=== PATIENT | male | born 1965 | race Two or more races ===

== ENCOUNTER 2022-04-10 06:49 | Outpatient (CLI) | payer OTHER | END 2022-04-10 06:57 | disposition home or self-care (01) | LOC: LAB 06:49 | PROVIDERS: ATTEND Internal Medicine Sports Medicine | DX: D64.9 Anemia, unspecified (principal); E11.9 Type 2 diabetes mellitus without complications; E78.2 Mixed hyperlipidemia; K76.89 Other specified diseases of liver; E03.8 Other specified hypothyroidism; R29.898 Other symptoms and signs involving the musculoskeletal system ==